=== PATIENT | male | born 1980 | race Caucasian/White ===

== ENCOUNTER 2017-01-02 07:16 | Emergency (ER) | payer OTHER ==
--- NOTE | 2017-01-02 07:22 | EDM.PDOC ---
ED HPI GENERAL MEDICAL PROBLEM - General Chief Complaint: Chest Pain Stated Complaint: CHEST PAIN Time Seen by Provider: 01/02/17 07:21 Source of Information: Reports: Patient History Limitations: Reports: No Limitations - History of Present Illness INITIAL COMMENTS - FREE TEXT/NARRATIVE: 36-year-old male presents the ED with diffuse sharp stabbing anterior chest wall pain. Patient states he awoke with this discomfort and it's progressed intensity. He is hyperventilating at the time of examination because he can't take a deep breath. Very anxious. Denies cough or sputum production. Denies fever or chills. Denies any known injuries to his anterior chest wall. His work does not involve a lot of pushing pulling or lifting or carrying. No recent travel history. Does not smoke cigarettes. Onset: Today Onset Date: 01/02/17 Onset Time: 05:30 Duration: Minutes: Location: Reports: Chest (Diffuse anterior chest particularly retrosternally.) Quality: Reports: Sharp, Stabbing Severity: Moderate Improves with: Reports: None Worsens with: Reports: Breathing Context: Denies: Activity, Exercise, Lifting, Sick Contact, Trauma, Other Associated Symptoms: Reports: Chest Pain, Shortness of Breath. Denies: No Other Symptoms, Confusion, Cough, cough w sputum, Diaphoresis, Fever/Chills, Headaches, Loss of Appetite, Malaise, Nausea/Vomiting, Rash, Seizure, Syncope Treatments CPA TAX: Reports: Other (see below) Mid-Sternal Chest Pain Score (Numeric/FACES): 9 - Related Data Allergies Allergy/AdvReac Type Severity Reaction Status Date / Time amoxicillin Allergy Rash Verified 01/02/17 07:27 Home Meds: Home Meds Amitriptyline [Elavil] 20 mg PO DAILY 10/06/14 [History] Diclofenac Sodium [Voltaren] 50 mg PO TIDMEALS #15 tab.ec 01/02/17 [Rx] oxyCODONE HCl/Acetaminophen [Percocet 5-325 mg Tablet] 1 - 2 each PO Q4H PRN # 12 tablet 01/02/17 [Rx] Past Medical History Neurological History: Reports: Other (See Below) (Insomnia) Social & Family History - Tobacco Use Smoking Status *Q: Never Smoker Second Hand Smoke Exposure: No - Alcohol Use Days Per Week of Alcohol Use: 0 - Recreational Drug Use Recreational Drug Use: No - Living Situation & Occupation Living situation: Reports: Occupation: Employed ED ROS GENERAL - Review of Systems Review Of Systems: See Below Constitutional: Denies: Fever, Chills, Malaise, Weakness, Fatigue, Diaphoresis, Decreased Appetite, Weight Loss HEENT: Reports: No Symptoms Respiratory: Reports: Shortness of Breath, Pleuritic Chest Pain. Denies: Wheezing, Cough, Sputum Cardiovascular: Reports: Chest Pain (Sharp stabbing anterior chest pain.). Denies: Blood Pressure Problem, Claudication, Dyspnea on Exertion, Edema, Lightheadedness, Orthopnea, Palpitations Endocrine: Reports: No Symptoms GI/Abdominal: Reports: No Symptoms : Reports: No Symptoms Musculoskeletal: Reports: No Symptoms Skin: Reports: No Symptoms Neurological: Reports: No Symptoms Psychiatric: Reports: No Symptoms Hematologic/Lymphatic: Reports: No Symptoms Immunologic: Reports: No Symptoms ED EXAM, GENERAL - Physical Exam Exam: See Below Exam Limited By: No Limitations General Appearance: Alert, WD/WN, Moderate Distress (Hyperventilating due to the severity of the chest pain.) Eye Exam: Bilateral Eye: Normal Inspection Throat/Mouth: Normal Inspection, Normal Lips, Normal Oropharynx Head: Atraumatic, Normocephalic Neck: Normal Inspection, Supple, Non-Tender, Full Range of Motion. No: Lymphadenopathy (L), Lymphadenopathy (R) Respiratory/Chest: No Respiratory Distress, Lungs Clear, Normal Breath Sounds, No Accessory Muscle Use, Respiratory Distress (Marked), Other (Chest wall is tender. Throat ribs 3-6 bilaterally in the midclavicular line and worse perhaps on the left as compared to the right.) Cardiovascular: Normal Peripheral Pulses ( hypoventilation syndrome.), Regular Rate, Rhythm, No Edema, No Gallop, No Murmur Peripheral Pulses: 3+: Posterior Tibial (L), Posterior Tibial (R), Dorsalis Pedis (L), Dorsalis Pedis (R) GI/Abdominal: Normal Bowel Sounds, Soft, Non-Tender, No Organomegaly, No Distention, Other (Scaphoid abdomen. No scars apparent) Extremities: Normal Inspection, Normal Range of Motion, Non-Tender, No Pedal Edema, Normal Capillary Refill Neurological: Alert, Oriented, CN II-XII Intact, Normal Cognition, No Motor/ Sensory Deficits Psychiatric: Normal Affect, Anxious Skin Exam: Warm, Dry, Intact, Normal Color, No Rash EKG INTERPRETATION EKG Date: 01/02/17 Time: 07:30 Rhythm: NSR Rate (Beats/Min): 81 [place]: Normal P-Wave: Present QRS: Normal ST-T: Other (Diffuse early repolarization pattern.) QT: Normal EKG Interpretation Comments: Normal ECG. Course - Vital Signs Last Recorded V/S: Last Vital Signs Temp 36.4 C 01/02/17 07:24 Pulse 74 01/02/17 07:59 Resp 14 01/02/17 07:59 BP 133/77 01/02/17 07:59 Pulse Ox 100 01/02/17 07:59 - Orders/Labs/Meds Orders: Active Orders 24 hr Category Date Time Status EKG Documentation Completion [RC] STAT Care 01/02/17 07:24 Active Chest 1V Frontal [CR] Stat Exams 01/02/17 07:24 Taken Ketorolac [Toradol] Med 01/02/17 07:45 Active 30 mg IVPUSH ONETIME Sodium Chloride 0.9% [Normal Saline] 1,000 ml Med 01/02/17 07:45 Active IV ASDIRECTED Medication Orders Sodium Chloride (Normal Saline) 1,000 mls @ 150 mls/hr IV ASDIRECTED SARITA Last Admin: 01/02/17 07:58 Dose: 150 mls/hr Ketorolac Tromethamine (Toradol) 30 mg IVPUSH ONETIME SARITA Last Admin: 01/02/17 07:56 Dose: 30 mg Labs: Laboratory Tests 01/02/17 01/02/17 01/02/17 Range/Units 07:18 07:18 07:18 WBC 7.95 (4.23-9.07) K/mm3 RBC 5.58 (4.63-6.08) M/mm3 Hgb 16.9 (13.7-17.5) gm/L Hct 49.0 (40.1-51.0) % MCV 87.8 (79.0-92.2) fl MCH 30.3 (25.7-32.2) pg MCHC 34.5 (32.2-35.5) g/dl RDW Std Deviation 42.1 (35.1-43.9) fL Plt Count 236 (163-337) K/mm3 MPV 11.0 (9.4-12.3) fl Neutrophils % (Manual) 54 (40-60) % Band Neutrophils % 0 (0-10) % Lymphocytes % (Manual) 37 (20-40) % Atypical Lymphs % 0 % Monocytes % (Manual) 6 (2-10) % Eosinophils % (Manual) 3 (0.8-7.0) % Basophils % (Manual) 0 L (0.2-1.2) Platelet Estimate Adequate RBC Morph Comment Normal D-Dimer, Quantitative (0.19-0.59) mg/L Sodium 141 (136-145) mEq/L Potassium 3.8 (3.5-5.1) mEq/L Chloride 103 (98-107) mEq/L Carbon Dioxide 27 (21-32) mEq/L Anion Gap 14.8 (5-15) BUN 15 (7-18) mg/dL Creatinine 1.3 (0.7-1.3) mg/dL Est Cr Clr Drug Dosing TNP Estimated GFR (MDRD) > 60 (>60) mL/min BUN/Creatinine Ratio 11.5 L (14-18) Glucose 91 (74-106) mg/dL Calcium 9.8 (8.5-10.1) mg/dL Total Bilirubin 0.8 (0.2-1.0) mg/dL AST 20 (15-37) U/L ALT 23 (16-63) U/L Alkaline Phosphatase 46 (46-116) U/L CK-MB (CK-2) 0.7 (0-3.6) ng/ml Troponin I < 0.017 (0.00-0.056) ng/mL C-Reactive Protein < 0.2 (<1.0) mg/dL Total Protein 8.2 (6.4-8.2) g/dl Albumin 4.8 (3.4-5.0) g/dl Globulin 3.4 gm/dL Albumin/Globulin Ratio 1.4 (1-2) 01/02/ Range/Units 07:23 WBC (4.23-9.07) K/mm3 RBC (4.63-6.08) M/mm3 Hgb (13.7-17.5) gm/L Hct (40.1-51.0) % MCV (79.0-92.2) fl MCH (25.7-32.2) pg MCHC (32.2-35.5) g/dl RDW Std Deviation (35.1-43.9) fL Plt Count (163-337) K/mm3 MPV (9.4-12.3) fl Neutrophils % (Manual) (40-60) % Band Neutrophils % (0-10) % Lymphocytes % (Manual) (20-40) % Atypical Lymphs % % Monocytes % (Manual) (2-10) % Eosinophils % (Manual) (0.8-7.0) % Basophils % (Manual) (0.2-1.2) Platelet Estimate RBC Morph Comment D-Dimer, Quantitative < 0.19 L (0.19-0.59) mg/L Sodium (136-145) mEq/L Potassium (3.5-5.1) mEq/L Chloride (98-107) mEq/L Carbon Dioxide (21-32) mEq/L Anion Gap (5-15) BUN (7-18) mg/dL Creatinine (0.7-1.3) mg/dL Est Cr Clr Drug Dosing Estimated GFR (MDRD) (>60) mL/min BUN/Creatinine Ratio (14-18) Glucose (74-106) mg/dL Calcium (8.5-10.1) mg/dL Total Bilirubin (0.2-1.0) mg/dL AST (15-37) U/L ALT (16-63) U/L Alkaline Phosphatase (46-116) U/L CK-MB (CK-2) (0-3.6) ng/ml Troponin I (0.00-0.056) ng/mL C-Reactive Protein (<1.0) mg/dL Total Protein (6.4-8.2) g/dl Albumin (3.4-5.0) g/dl Globulin gm/dL Albumin/Globulin Ratio (1-2) Meds: Medications Generic Name Dose Route Start Last Admin Trade Name Armandq PRN Reason Stop Dose Admin Sodium Chloride 1,000 mls @ 150 mls/hr 01/02/17 07:45 01/02/17 07:58 Normal Saline IV 150 mls/hr ASDIRECTED SARITA Administration Ketorolac Tromethamine 30 mg 01/02/17 07:45 01/02/17 07:56 Toradol IVPUSH 30 mg ONETIME SARITA Administration Discontinued Medications Generic Name Dose Route Start Last Admin Trade Name Dorothy PRN Reason Stop Dose Admin Hydromorphone HCl 0.5 mg 01/02/17 07:31 01/02/17 07:53 Dilaudid IVPUSH 01/02/17 07:32 0.5 mg ONETIME ONE Administration Lorazepam 0.5 mg 01/02/17 07:31 01/02/17 07:49 Ativan IVPUSH 01/02/17 07:32 0.5 mg ONETIME ONE Administration Metoclopramide HCl 7.5 mg 01/02/17 07:31 01/02/17 07:51 Reglan IVPUSH 01/02/17 07:32 7.5 mg ONETIME ONE Administration - Radiology Interpretation Free Text/Narrative:: 36-year-old male presents to the ED with acute onset of sharp stabbing anterior chest pain primarily retrosternal. Making it very hard for him to take any deep breaths and he is quite anxious. He is hyperventilating at the time of exam. Vital signs are otherwise normal. O2 sats are 100% on room air. Appears to be very anxious. He does have diffuse anterior chest wall pain particularly ribs 4, 5 and 6 bilaterally. ECG done by triage nurse's shows sinus rhythm at 81 per minute with a diffuse early repolarization pattern but no true ST segment elevation. Pain appears to be chest wall in origin. No recent travel history no risk factors for DVT. Plan IV normal saline at 150 mils per hour. Given Ativan 0.5 mg IV with Reglan 7.5 mg IV Dilaudid 0.5 mg IV and Toradol 30 mg IV for pain relief. Routine labs to be done. - Re-Assessments/Exams Free Text/Narrative Re-Assessment/Exam: 01/02/17 07:50 chest x-ray done portably is within normal limits in particular no infiltrates within the lung [place] and no signs of a pneumothorax. Cardiac silhouette is normal size 01/02/17 08:36 labs come back and are essentially normal. White count 7.95 with normal differential hemoglobin 16.9 with hematocrit of 49.0 indicating he's a little bit volume depleted. Platelets 236,000. D-dimer normal sodium 141 potassium 3.8. Chloride 103 bicarbonate 27. Anion gap is 14.8. Renal function liver function tests are normal. Troponin is less than 0.017 CK-MB fraction normal CRP is less than 0.2. Further questioning it now reveals he was working on a vehicle his truck on December 30. He was on top of the fender basically into the engine bay trying to fix a starter. This would explain the chest wall discomfort from blunt chest wall trauma. I will place him on Voltaren 50 mg 3 times a day for 5 days. Percocet tabs 5/325 one every 4-6 hours if needed for pain relief. No will be given to keep him out of the workplace today and tomorrow. Departure - Departure Time of Disposition: 08:38 Disposition: Home, Self-Care 01 Condition: Fair Clinical Impression: Anterior chest wall pain, Non-cardiac chest pain Prescriptions: Diclofenac Sodium [Voltaren] 50 mg PO TIDMEALS #15 tab.ec oxyCODONE HCl/Acetaminophen [Percocet 5-325 mg Tablet] 1 - 2 each PO Q4H PRN # 12 tablet PRN Reason: pain relief. Forms: ED Return to Work/School Form Additional Instructions: Evaluation the emergency room today in regards to development of severe stabbing anterior chest wall pain which was noted to be quite significant bilaterally on examination. Lungs are clear heart was normal heart tracing was normal chest x-ray was normal and lab tests proved to be normal. Pain appears to be coming from the chest wall and this most likely was from working on your truck as you described a few days ago. Usually pain starts 2-3 days after blunt chest wall injury. Due to the significant amount of inflammation identified in her ribs I suspect they are inflamed with inflammation of the muscles in between the ribs as cause of your sharp stabbing pain when you try to breathe today. We did couple of days to start to heal up. Pain is usually worse 2-3 days after injury and improves over a period of 5-7 days. Suggest off work today and possibly tomorrow. Medication is to be Voltaren 50 mg 3 times daily for the next 5 days to reduce pain and inflammation in the ribs. Pill to be Percocet 5/3/25 ideally one tablet every 4-6 hours for pain relief not controlled by Voltaren alone. Of notable turn will take a good day and a half to kick in and work well. - My Orders Last 24 Hours: My Active Orders 01/02/17 07:24 EKG Documentation Completion [RC] STAT Chest 1V Frontal [CR] Stat 01/02/17 07:45 Ketorolac [Toradol] 30 mg IVPUSH ONETIME Sodium Chloride 0.9% [Normal Saline] 1,000 ml IV ASDIRECTED - Assessment/Plan Last 24 Hours: My Active Orders 01/02/17 07:24 EKG Documentation Completion [RC] STAT Chest 1V Frontal [CR] Stat 01/02/17 07:45 Ketorolac [Toradol] 30 mg IVPUSH ONETIME Sodium Chloride 0.9% [Normal Saline] 1,000 ml IV ASDIRECTED
[2017-01-02] MEDS ORDERED: LORazepam 2 MG/ML MDV IVPUSH ONE (07:31)
[2017-01-02] MEDS ORDERED: HYDROmorphone 0.5 MG/0.5 ML Syringe IVPUSH ONE (07:31)
[2017-01-02] MEDS ORDERED: Metoclopramide 10 MG/2 ML SDV IVPUSH ONE (07:31)
[2017-01-02] MEDS ORDERED: Sodium Chloride 0.9% 1,000 ML IV SCH (07:45)
[2017-01-02] MEDS ORDERED: Ketorolac 30 MG/ML SDV IVPUSH SCH (07:45)
[2017-01-02 09:21] VITALS: BP 131/80
--- NOTE | 2017-01-02 15:10 | CR ---
Chest: Frontal view of the chest was obtained. Comparison: No previous study. Heart size and mediastinum are within normal limits. Lungs are clear. Bony structures are within normal limits. Impression: 1. Nothing acute is identified on frontal chest x-ray. Diagnostic code #1
== END 2017-01-02 09:15 | disposition home or self-care (01) ==
LOC: JD.ED 07:16
DX: R07.89 Other chest pain (principal); Z79.899 Other long term (current) drug therapy; Z88.1 Allergy status to other antibiotic agents
CPT/HCPCS: 36415; 71010; 80053; 82553; 84484; 85025; 85379; 86140; 93005; 96361; 96374; 96375; 99285; J1170; J1885; J2060; J2765; J7040; 99284

== ENCOUNTER 2018-06-27 19:59 | Emergency (ER) | payer OTHER ==
[2018-06-27 20:13] VITALS: BP 125/77
--- NOTE | 2018-06-27 20:30 | EDM.PDOC ---
ED HPI GENERAL MEDICAL PROBLEM - General Chief Complaint: Upper Extremity Injury/Pain Stated Complaint: FELL FROM TRUCK ARM INJURY Time Seen by Provider: 06/27/18 20:12 Source of Information: Reports: Patient History Limitations: Reports: No Limitations - History of Present Illness INITIAL COMMENTS - FREE TEXT/NARRATIVE: The patient presents with right shoulder pain. He was getting out of his pickup and he slipped and on the running board and tried to catch himself with his right arm and he had pain to his anterior shoulder. He has no other injury. He can move his shoulder but he has limited motion due to pain. He is right handed. 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 (see below) Other Treatments HAZARDOUS MATERIALS WASTE TECHNICIAN: motrin Right Shoulder Pain Score (Numeric/FACES): 8 - Related Data Allergies Allergy/AdvReac Type Severity Reaction Status Date / Time amoxicillin Allergy Rash Verified 01/02/17 07:27 Home Meds: Home Meds Amitriptyline [Elavil] 20 mg PO BEDTIME 10/06/14 [History] Past Medical History Neurological History: Reports: Other (See Below) Psychiatric History: Reports: Anxiety, Depression - Past Surgical History GI Surgical History: Reports: Appendectomy Musculoskeletal Surgical History: Reports: Arthroscopic Knee, ORIF Social & Family History - Tobacco Use Smoking Status *Q: Never Smoker - Caffeine Use Caffeine Use: Reports: Coffee, Energy Drinks, Soda - Recreational Drug Use Recreational Drug Type: Reports: Marijuana/Hashish Other Recreational Drug Type: few times monthly - Living Situation & Occupation Living situation: Reports: Occupation: Employed Review of Systems - Review of Systems Review Of Systems: See Below Constitutional: Reports: No Symptoms Eyes: Reports: No Symptoms Ears: Reports: No Symptoms Nose: Reports: No Symptoms Mouth/Throat: Reports: No Symptoms Respiratory: Reports: No Symptoms Cardiovascular: Reports: No Symptoms GI/Abdominal: Reports: No Symptoms Genitourinary: Reports: No Symptoms Musculoskeletal: Reports: Shoulder Pain (right) ED EXAM, GENERAL - Physical Exam Exam: See Below Exam Limited By: No Limitations General Appearance: Alert, No Apparent Distress Ears: Normal External Exam Nose: Normal Inspection Head: Atraumatic, Normocephalic Neck: Normal Inspection Respiratory/Chest: No Respiratory Distress Extremities: Other (Pain upon palpation to the right anterior shoulder. Good sensation and pulses distally. Limited range of motion due to pain.) Course - Vital Signs Last Recorded V/S: Last Vital Signs Temp 98.2 F 06/27/18 20:11 Pulse 64 06/27/18 20:11 Resp 20 06/27/18 20:11 BP 125/77 06/27/18 20:11 Pulse Ox 97 06/27/18 20:11 - Orders/Labs/Meds Orders: Active Orders 24 hr Category Date Time Status Shoulder Comp Rt [CR] Stat Exams 06/27/18 20:24 Taken - Re-Assessments/Exams Free Text/Narrative Re-Assessment/Exam: 06/27/18 20:30 I have ordered an x-ray of his shoulder. 06/27/18 21:14 His x-ray looks good. He has pain when abducting his arm and internally rotating his shoulder. He does have good strength yet. I feel he needs antiinflammatories and OT. He may also need an orthopedic referral but he is with the OR and they may have him see one of their doctors. Departure - Departure Time of Disposition: 21:15 Disposition: Home, Self-Care 01 Condition: Good Clinical Impression: Rotator cuff strain Qualifiers: Encounter type: initial encounter Laterality: right Qualified Code(s): S46.011A - Strain of muscle(s) and tendon(s) of the rotator cuff of right shoulder, initial encounter - Discharge Information *PRESCRIPTION DRUG MONITORING PROGRAM REVIEWED*: Not Applicable *COPY OF PRESCRIPTION DRUG MONITORING REPORT IN PATIENT SANJAY: Not Applicable Referrals: PCP,Not In Area [Primary Care Provider] - Forms: ED Department Discharge, ED Return to Work/School Form Additional Instructions: Take motrin or aleve for pain. Ice your shoulder for 15 minutes every other hour while awake for 2 days. Try to move your shoulder as much as you can 2 times a day to avoid the tendons getting stiff. Follow up with occupational therapy in town and call the OR clinic here to get an appointment. You will need a referral to an orthopedic surgeon if this does not get better. Please return if you are worse. - My Orders Last 24 Hours: My Active Orders 06/27/18 20:24 Shoulder Comp Rt [CR] Stat - Assessment/Plan Last 24 Hours: My Active Orders 06/27/18 20:24 Shoulder Comp Rt [CR] Stat
--- NOTE | 2018-06-28 15:10 | CR ---
Right shoulder: Three views of the right shoulder were obtained. Comparison: No previous study. Acromioclavicular and glenohumeral joints are unremarkable. No fracture, dislocation or other bony abnormality is seen. Impression: 1. No abnormality is identified on three-view right shoulder study. Diagnostic code #1
== END 2018-06-27 21:35 | disposition home or self-care (01) ==
LOC: JD.ED 19:59
DX: S46.011A Strain of muscle(s) and tendon(s) of the rotator cuff of right shoulder, initial encounter (principal); Z88.1 Allergy status to other antibiotic agents; W01.0XXA Fall on same level from slipping, tripping and stumbling without subsequent striking against object, initial encounter
CPT/HCPCS: 73030-26-RT; 73030-RT; 99282; 99283